=== PATIENT | female | born 1935 | race Caucasian/White ===

== ENCOUNTER → 2018-06-21 08:25 | Outpatient (CLI) | payer MEDICARE, OTHER, SELFPAY ==
[2018-06-21 09:17] LABS: Add Manual Diff / Slide Review NO; Basophils Percent Auto 0.7 % (0-2); Eosinophils Percent Auto 2.4 % (2-4); Hematocrit 45.5 % (36-46); Hemoglobin 15.1 g/dL (12.0-16.0); Lymphocytes Percent Auto 32.8 % (25-40); Mean Corpuscular HGB Conc 33.2 % (30-36); Mean Corpuscular Hemoglobin 30.5 PG (26-34); Monocytes Percent Auto 8.8 % (3-14); Neutrophils Absolute Auto 3300 /uL (3000-5900); Neutrophils Percent Auto 55.3 % (50-75); Platelet Count 244 X10^3/uL (150-400); Red Blood Cell Count 4.94 X10^6/uL (4.0-5.2)
[2018-06-21 09:50] LABS: Alanine Aminotransferase 28 IU/L (9-52); Albumin 4.3 g/dL (3.5-5.0); Albumin Globulin Ratio 1.6 (1.0-2.8); Alkaline Phosphatase 102 U/L (38-126); Aspartate Aminotransferase 22 IU/L (14-36); BUN Creatinine Ratio 9.3 (6-22); Bilirubin Total 0.4 mg/dL (0.2-1.3); Blood Urea Nitrogen 13 mg/dL (7-17); Calcium 9.9 mg/dL (8.4-10.2); Carbon Dioxide 21 mmol/L (22-32); Chloride 107 mmol/L (98-107); Estimated Glomerular Filt Rate 35.9 mL/min (>60); Globulin 2.7 g/dL (1.7-4.1); Glucose 118 mg/dL (80-110); HEMOLYSIS < 15 (0-50); Potassium 4.8 mmol/L (3.4-5.1); Sodium 144 mmol/L (137-145)
== END ==
PROVIDERS: PCP Internal Medicine; Visit Provider Internal Medicine
DX: N18.9 Chronic kidney disease, unspecified (principal); I10 Essential (primary) hypertension; K58.0 Irritable bowel syndrome with diarrhea
CPT/HCPCS: 36415; 80053; 85025

== ENCOUNTER → 2018-07-04 10:05 | Outpatient (CLI) | payer MEDICARE, OTHER, SELFPAY | PROVIDERS: PCP Internal Medicine; Visit Provider Internal Medicine | DX: M81.0 Age-related osteoporosis without current pathological fracture (principal); Z78.0 Asymptomatic menopausal state; E03.9 Hypothyroidism, unspecified; Z82.62 Family history of osteoporosis; Z87.891 Personal history of nicotine dependence | CPT/HCPCS: 77080 ==

== ENCOUNTER 2020-03-08 11:55 | Emergency (ER) | payer MEDICARE, OTHER, SELFPAY ==
[2020-03-08] VITALS (8 sets, daily range): BP systolic 185–232; BP diastolic 84–109; PULSE 48–65; RESP 17–22; TEMP 36.5; O2SAT 96–97; BMI 24.4
--- NOTE | 2020-03-08 12:28 | DI.RAD.S_ITS ---
PROCEDURE: XR CHEST 1V INDICATIONS: chest pain TECHNIQUE: One view of the chest was acquired. COMPARISON: [facility], , XR CXR 2 VIEW, 10/15/2000, 14:38. CT of the chest dated 07/09/10. FINDINGS: Surgical changes and devices: None. Lungs and pleura: Areas of consolidation versus increased density are evident within the bilateral medial infrahilar regions. No large effusion or definite pneumothorax is appreciated. Mediastinum: Mediastinal contours appear normal. Heart size is normal. Bones and chest wall: No suspicious bony lesions. Overlying soft tissues appear unremarkable. IMPRESSION: 1. No definite acute cardiopulmonary process is evident. 2. Areas of increased density within the infrahilar regions likely is related to the patient's known large hiatal hernia. Dictated by: Daniel Berrios M.D. on 03/08/2020 at 11:47 Approved by: Daniel Berrios M.D. on 03/08/2020 at 12:01
[2020-03-08 12:34] LABS: Add Manual Diff / Slide Review NO; Basophils Absolute Auto 100 /uL (0-100); Basophils Percent Auto 0.9 % (0-2); Eosinophils Absolute Auto 100 /uL (0-450); Eosinophils Percent Auto 2.3 % (2-4); Hematocrit 43.4 % (36-46); Hemoglobin 14.5 g/dL (12.0-16.0); Lymphocytes Absolute Auto 1800 /uL (1100-4500); Lymphocytes Percent Auto 27.9 % (25-40); Mean Corpuscular HGB Conc 33.4 % (30-36); Mean Corpuscular Hemoglobin 30.7 PG (26-34); Mean Corpuscular Volume 92.2 fL (80-100); Monocytes Absolute Auto 500 /uL (0-900); Monocytes Percent Auto 8.5 % (3-14); Neutrophils Absolute Auto 3900 /uL (1500-7000); Neutrophils Percent Auto 60.4 % (50-75); Platelet Count 189 X10^3/uL (150-400); Red Blood Cell Count 4.71 X10^6/uL (4.0-5.2); White Blood Cell Count 6.4 X10^3/uL (4.5-11.0)
[2020-03-08 12:40] LABS: Prothrombin Time 10.9 SECONDS (10.1-12.7)
[2020-03-08 12:42] LABS: PTT Partial Thromboplastin Tim 32 SECONDS (26.4-36.2)
[2020-03-08 12:44] LABS: Alanine Aminotransferase 15 IU/L (<35); Albumin Globulin Ratio 1.3 (1.0-2.8); Alkaline Phosphatase 98 U/L (38-126); Aspartate Aminotransferase 27 IU/L (14-36); BUN Creatinine Ratio 12.6 (6-22); Bilirubin Total 0.6 mg/dL (0.2-1.3); Blood Urea Nitrogen 16 mg/dL (7-17); Calcium 9.7 mg/dL (8.4-10.2); Carbon Dioxide 21 mmol/L (22-32); Chloride 110 mmol/L (98-107); Creatine Kinase 76 U/L (30-135); Estimated Glomerular Filt Rate 40.1 mL/min (>60); Glucose 99 mg/dL (80-110); HEMOLYSIS 44 (0-50); Lipase 182 U/L (23-300); Potassium 4.3 mmol/L (3.4-5.1); Sodium 138 mmol/L (137-145)
[2020-03-08 12:55] LABS: Troponin I < 0.012 ng/mL (0.01-0.034)
--- NOTE | 2020-03-08 13:04 | ED.ARRPALP ---
HPI - Arrhythmia/Palpitations General Chief Complaint: Arrhythmia/Palpitations Stated Complaint: Irregular Heart Beat Time Seen by Provider: 03/08/20 12:49 Source: patient Mode of arrival: Wheelchair Limitations: no limitations History of Present Illness HPI narrative: CC; Palpitations HPI: The patient is an 84-year-old female with a history of paroxysmal atrial fibrillation. The patient is on flecainide and no beta-kanika or calcium channel agent. The patient had transient dizziness associated with a low heart rate with her heart rate dropping to the mid 40s according to her . Her is a retired physician. The patient describes her dizziness as a spinning vertiginous sensation. She denied being faint or lightheaded. She denied any chest pain shortness of breath. She took 2 buffered aspirins prior to coming into the emergency department. She admits to history of hypertension denies a previous history of stroke myocardial infarction or asthma. The patient denies any fever chills or sweats chest pain shortness of breath or cough. She has had no nausea but she has had intermittent diarrhea without melena or hematochezia. She has had some mild urinary frequency but no dysuria. Related Data Home Medications Medication Instructions Recorded Confirmed FLECAINIDE ACETATE (Tambocor) 50 mg PO BID #0 08/26/10 LEVOTHYROXINE SODIUM (Synthroid) 75 mcg PO QDAY #0 08/26/10 OMEPRAZOLE 40 mg PO Q DAY #0 08/26/10 Tolterodine Tartrate (Detrol) 4 mg Q DAY #0 08/26/10 [STOOL SOFTENER] 1 PO QDAY #0 08/26/10 [TRAVATAN] 0.004 % INOC QDAY #0 08/26/10 [PROSED] PRN #0 12/02/12 fexofenadine 60 mg PO #0 12/02/12 DILTIAZEM HCL (DILT-CD) 180 mg PO QDAY #0 01/14/13 Previous Rx's Medication Instructions Recorded naproxen [Naprosyn] 500 mg PO BIDCC #30 01/14/13 hydrochlorothiazide 25 mg PO DAILY #20 tab 03/08/20 meclizine 12.5 mg PO TID PRN #15 tab 03/08/20 Allergies Allergy/AdvReac Type Severity Reaction Status Date / Time codeine [CODEINE] Allergy Unknown Verified 03/08/20 12:06 Review of Systems Review of Systems Narrative: Her review of systems were all negative except for those mentioned in the history of present illness Patient History Social History Smoking Status: Unknown if ever smoked Smoking Status: Unknown if ever smoked alcohol intake frequency: 0-2 drinks per day Substance Use Type: does not use Exam Narrative Exam Narrative: PHYSICAL EXAM: CONSTITUTIONAL: Awake, Alert, Oriented, Coherent, Cooperative in NAD. Does not appear toxic or ill. HEAD: AT/NC EENT: PERRL, FROM of eyes, no discharge, no nystagmus NOSE:No epistaxis or nasal drainage MOUTH:Oral mucosa is moist and pink, posterior pharynx is without erythema or exudate. NECK: Supple, no obvious JVD, Trachea is midline without stridor, no palpable LN. SPINE: Palpationof the cervical, Thoracic, Lumbar or Sacral spine reveals no gross deformity or tenderness. No CVA tenderness. THORAX: No deformity, retractions, chest wall tenderness. LUNGS: Clear, symmetrical breath sounds without respiratory distress. HEART: Normal heart tones, regular rhythm and rate without murmur. ABDOMEN: Soft, non-tender, no guarding, rebound, rigidity or palpable mass. EXTREMITIES: No edema, deformity, tenderness or cyanosis. SKIN: No rash, bruising, petechiae or purpura. NEURO: Awake, alert, oriented, conversive, cranial nerves II-XII are symmetrical , moves all 4 extremities and is ambulatory. MENTAL HEALTH: Does not appear anxious or depressed. Initial Vital Signs Initial Vital Signs: Vital Signs Temperature 97.7 F 03/08/20 12:01 Pulse Rate 64 03/08/20 12:01 Respiratory Rate 17 03/08/20 12:01 Blood Pressure 232/109 H 03/08/20 12:01 Pulse Oximetry 97 03/08/20 12:01 Course Course Course Narrative: 1342: In the supine position the patient's heart rate was 53 blood pressure was 101/91 In the standing position heart rate was 63 and blood pressure 206/88. The patient has a history of paroxysmal atrial fibrillation is not on any anticoagulation and is on flecainide. 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 The patient is not on a beta-kanika or anticoagulant. The patient is just on flecainide.[address] Long. The patient's is a retired physician is concerned that her heart rate drops down into the high 40s. 1353: Discussed with Dr. Long, control the blood pressure. It is normal for the heart rate to be 45, 50 or 60 on the flecainide as long as the blood pressure is normal. If the blood pressure is high that needs to be lowered. They can call the office and make an appointment for a Holter monitor and further evaluation. Dr. Shukla states that he has not seen the patient since 2015. Orders Ordered: ED Orders 03/08/20 12:28 XR chest 1V Stat Discontinued Medications Hydralazine HCl (Apresoline) 5 mg IV NOW ONE Stop: 03/08/20 13:54 Last Admin: 03/08/20 14:06 Dose: 5 mg Documented by: MACI Vital Signs Vital signs: Vital Signs - 8 hr 03/08/20 13:23 03/08/20 13:32 03/08/20 13:34 Pulse Rate 48 L 57 L 65 Pulse Rate [Orthostatic Lying] Pulse Rate [Orthostatic Standing] Respiratory Rate 22 19 22 Blood Pressure 201/91 H 206/88 H Blood Pressure [Orthostatic Lying] Blood Pressure [Orthostatic Standing] Pulse Oximetry 96 96 97 03/08/20 13:40 03/08/20 14:00 03/08/20 14:06 Pulse Rate 53 L 63 Pulse Rate [Orthostatic Lying] 53 L Pulse Rate [Orthostatic Standing] 63 Respiratory Rate 22 Blood Pressure 209/88 H Blood Pressure [Orthostatic Lying] 201/91 H Blood Pressure [Orthostatic Standing] 206/88 H Pulse Oximetry 97 03/08/20 14:31 Pulse Rate 61 Pulse Rate [Orthostatic Lying] Pulse Rate [Orthostatic Standing] Respiratory Rate 22 Blood Pressure 185/84 H Blood Pressure [Orthostatic Lying] Blood Pressure [Orthostatic Standing] Pulse Oximetry 96 MDM - Arrhythmia/Palpitations Medical Records Attestation: I reviewed the patient's medical records. Lab Data Attestation: I reviewed the patient's lab results. Result diagrams: 03/08/20 12:05 03/08/20 12:05 Labs: Lab Results 03/08/20 03/08/20 03/08/20 Range/Units 12:05 12:05 12:05 WBC 6.4 (4.5-11.0) X10^3/uL RBC 4.71 (4.0-5.2) X10^6/uL Hgb 14.5 (12.0-16.0) g/dL Hct 43.4 (36-46) % MCV 92.2 (80-100) fL MCH 30.7 (26-34) PG MCHC 33.4 (30-36) % RDW 15.0 H (11.6-14.8) % Plt Count 189 (150-400) X10^3/uL Neut % (Auto) 60.4 (50-75) % Lymph % (Auto) 27.9 (25-40) % [place] % (Auto) 8.5 (3-14) % Eos % (Auto) 2.3 (2-4) % Baso % (Auto) 0.9 (0-2) % Neut # (Auto) 3900 (4878-1672) /uL Lymph # (Auto) 1800 (0936-2835) /uL [place] # (Auto) 500 (0-900) /uL Eos # (Auto) 100 (0-450) /uL Baso # (Auto) 100 (0-100) /uL PT 10.9 (10.1-12.7) SECONDS INR 1.0 (0.9-1.3) APTT 32 (26.4-36.2) SECONDS Sodium 138 (137-145) mmol/L Potassium 4.3 (3.4-5.1) mmol/L Chloride 110 H (98-107) mmol/L Carbon Dioxide 21 L (22-32) mmol/L BUN 16 (7-17) mg/dL Creatinine 1.27 H (0.52-1.04) mg/dL Estimated GFR 40.1 L (>60) mL/min BUN/Creatinine Ratio 12.6 (6-22) Glucose 99 (80-110) mg/dL Calcium 9.7 (8.4-10.2) mg/dL Total Bilirubin 0.6 (0.2-1.3) mg/dL AST 27 (14-36) IU/L ALT 15 (<35) IU/L Alkaline Phosphatase 98 (38-126) U/L Total Creatine Kinase 76 (30-135) U/L CK-MB (CK-2) TNP CK-MB (CK-2) Rel Index TNP Troponin I < 0.012 (0.01-0.034) ng/mL Total Protein 7.0 (6.3-8.2) g/dL Albumin 4.0 (3.5-5.0) g/dL Globulin 3.0 (1.7-4.1) g/dL Albumin/Globulin Ratio 1.3 (1.0-2.8) Lipase 182 (23-300) U/L ECG Data Attestation: I personally reviewed and interpreted this ECG as follows: Interpretation: Patient's EKG obtained at 12:14 p.m. reveals a sinus bradycardia with a ventricular rate of 50. MS interval is 160 milliseconds QRS duration is 90 milliseconds QTC is 404 milliseconds with left axis deviation. The patient has flat biphasic T-waves in leads III and AVF with an inverted T-wave in V1. There are no other acute diagnostic ST segment changes appreciated. The patient has nonspecific ST segment changes. Discharge Plan Departure Patient Disposition: Home Clinical Impression: Palpitations, Paroxysmal A-fib Hypertension Qualifiers: Hypertension type: essential hypertension Qualified Code(s): I10 - Essential (primary) hypertension Discharge Date/Time: 03/08/20 14:56 Instructions: Essential Hypertension, DI for Atrial Fibrillation, DI for Palpitations Activity Restrictions/Additional Instructions: 1. Call Dr. Long's office to make an appointment and schedule a Holter monitor. 2. Your heart rate may dropped to the mid 40s, 50s and 60s while on the flecainide. It is important that her blood pressure remains greater than 120 during this time. 3. Continue your losartan as prescribed and recomended that we start hydrochlorothyazide, 25 mg per day. 4. Continue the rest of your medications. 5. For spinning dizziness or disequilibrium take meclizine 12.5 mg 3 times a day as needed. Prescriptions: New meclizine 12.5 mg tablet 12.5 mg PO TID PRN (Reason: dizziness) Qty: 15 RF: 0 hydrochlorothiazide 25 mg tablet 25 mg PO DAILY Qty: 20 RF: 1 No Action OMEPRAZOLE 40 mg PO Q DAY Qty: 0 RF: 0 Tolterodine Tartrate (Detrol) 4 mg Q DAY Qty: 0 RF: 0 LEVOTHYROXINE SODIUM (Synthroid) 75 mcg PO QDAY Qty: 0 RF: 0 FLECAINIDE ACETATE (Tambocor) 50 mg PO BID Qty: 0 RF: 0 [STOOL SOFTENER] 1 PO QDAY Qty: 0 RF: 0 [TRAVATAN] 0.004 % INOC QDAY Qty: 0 RF: 0 fexofenadine 60 MG tablet 60 mg PO Qty: 0 RF: 0 [PROSED] PRN Qty: 0 RF: 0 DILTIAZEM HCL (DILT-CD) 180 mg PO QDAY Qty: 0 RF: 0 naproxen [Naprosyn] 500 MG tablet 500 mg PO BIDCC Qty: 30 RF: 0 Referrals: Wilber León MD [Primary Care Provider] -
[2020-03-08] MEDS: HYDRALAZINE 20 MG/ML VIAL 5 MG IV (14:06)
== END 2020-03-08 14:56 | disposition home or self-care (01) ==
PROVIDERS: Emergency Provider Emergency Medicine; PCP Internal Medicine
DX: I48.0 Paroxysmal atrial fibrillation (principal); R00.2 Palpitations; I10 Essential (primary) hypertension; R19.7 Diarrhea, unspecified; R35.0 Frequency of micturition
CPT/HCPCS: 36415; 71045; 80053; 82550; 83690; 84484; 85025; 85610; 85730; 93005; 96374; 99284; J0360

== ENCOUNTER → 2020-03-26 10:32 | Outpatient (CLI) | payer MEDICARE, OTHER, SELFPAY ==
[2020-03-26 13:06] LABS: TSH w/ Reflex to FT4 1.07 uIU/mL (0.47-4.68)
== END ==
PROVIDERS: PCP Internal Medicine; Referring Provider Internal Medicine; Visit Provider Internal Medicine
DX: E03.9 Hypothyroidism, unspecified (principal)
CPT/HCPCS: 36415; 84443

== ENCOUNTER → 2020-11-07 14:50 | Outpatient (ROUT) | payer MEDICARE, OTHER, SELFPAY ==
[2020-11-07 16:05] LABS: Add Manual Diff / Slide Review NO; Basophils Absolute Auto 0 /uL (0-100); Basophils Percent Auto 0.5 % (0-2); Eosinophils Absolute Auto 100 /uL (0-450); Hematocrit 41.7 % (36-46); Hemoglobin 13.8 g/dL (12.0-16.0); Lymphocytes Absolute Auto 1500 /uL (1100-4500); Lymphocytes Percent Auto 21.7 % (25-40); Mean Corpuscular HGB Conc 33.1 % (30-36); Mean Corpuscular Hemoglobin 31.6 PG (26-34); Mean Corpuscular Volume 95.2 fL (80-100); Monocytes Absolute Auto 500 /uL (0-900); Monocytes Percent Auto 7.6 % (3-14); Neutrophils Absolute Auto 4600 /uL (1500-7000); Neutrophils Percent Auto 68.2 % (50-75); Platelet Count 187 X10^3/uL (150-400); Red Blood Cell Count 4.37 X10^6/uL (4.0-5.2); Red Cell Distribution Width 14.7 % (11.6-14.8); White Blood Cell Count 6.8 X10^3/uL (4.5-11.0)
[2020-11-07 16:18] LABS: Alanine Aminotransferase 18 IU/L (<35); Albumin 4.1 g/dL (3.5-5.0); Albumin Globulin Ratio 1.4 (1.0-2.8); Alkaline Phosphatase 116 U/L (38-126); Aspartate Aminotransferase 22 IU/L (14-36); BUN Creatinine Ratio 15.1 (6-22); Bilirubin Total 0.3 mg/dL (0.2-1.3); Blood Urea Nitrogen 21 mg/dL (7-17); Calcium 9.6 mg/dL (8.4-10.2); Carbon Dioxide 20 mmol/L (22-32); Chloride 110 mmol/L (98-107); Globulin 2.9 g/dL (1.7-4.1); Glucose 114 mg/dL (80-110); HEMOLYSIS < 15 (0-50); Potassium 4.4 mmol/L (3.4-5.1); Sodium 142 mmol/L (137-145)
[2020-11-07 16:33] LABS: Hemoglobin A1C% w Est Avg Glu 5.6 % (4.0-6.0)
[2020-11-07 16:41] LABS: TSH w/ Reflex to FT4 1.41 uIU/mL (0.47-4.68)
== END ==
PROVIDERS: PCP Internal Medicine; Visit Provider Internal Medicine
DX: I48.20 Chronic atrial fibrillation, unspecified (principal); N18.9 Chronic kidney disease, unspecified; I10 Essential (primary) hypertension; E11.9 Type 2 diabetes mellitus without complications
CPT/HCPCS: 80053; 83036; 84443; 85025

== ENCOUNTER 2023-04-14 09:30 | Emergency (ER) | payer MEDICARE, OTHER, SELFPAY ==
--- NOTE | 2023-04-14 09:37 | DI.RAD.S_ITS ---
PROCEDURE: XR RIBS LT MIN 3V W CXR1V INDICATIONS: L lower rib pain after injury TECHNIQUE: 2 views of the left ribs were acquired, along with a single view chest. COMPARISON: None. FINDINGS: Surgical changes and devices: None. Bones and chest wall: Nondisplaced posterior left 11th rib fracture. No suspicious bony lesions. Overlying soft tissues appear unremarkable. Lungs and pleura: No pleural effusions or pneumothorax. Lungs appear clear. Mediastinum: Mediastinal contours appear normal. Heart size is normal. Large hiatal hernia. IMPRESSION: 1. Left 11th rib fracture. 2. No pneumothorax. 3. Large hiatal hernia. Dictated by: Cali Cisneros M.D. on 04/14/2023 at 10:19 Approved by: Cali Cisneros M.D. on 04/14/2023 at 10:21
[2023-04-14 09:40] VITALS: BP 198/98; PULSE 100; RESP 18; TEMP 36.2; O2SAT 99; BMI 23.8
--- NOTE | 2023-04-14 09:44 | ED_ITS ---
HPI - General Adult General Chief complaint: Back Pain/Injury Stated complaint: back pain caught while he was falling Time Seen by Provider: 04/14/23 09:31 Source: patient Mode of arrival: Wheelchair Limitations: no limitations History of Present Illness HPI narrative: Patient is an 87-year-old female she is here for evaluation of thoracic/lower back discomfort that is both sides with left being worse than right. On Wednesday she stated that she tried to catch her from falling and that is when she hurt her back. She did not fall herself. She has been putting a heating pad over the area with only minimal relief. She has had symptoms like this in the past. She thinks that muscle relaxers has helped. Related Data Home Medications Medication Instructions Recorded Confirmed LEVOTHYROXINE SODIUM (Synthroid) 75 mcg PO QDAY ##0 08/26/10 10/07/22 acetaminophen 325 mg capsule 325 mg PO ONCE PRN 09/07/22 10/07/22 (Tylenol) brinzolamide 1 % eye drp EYE-BOTH BID 09/07/22 10/07/22 drops,suspension flecainide 50 mg tablet 50 mg PO BID 09/07/22 10/07/22 travoprost 0.004 % eye drops drp EYE-BOTH ONCE 09/07/22 10/07/22 vit cap PO .qd 09/07/22 10/07/22 C,E,zinc,Hp-kieih-8-lutein-zeaxanthin 250 mg-2.5 mg-0.5 mg capsule Previous Rx's Medication Instructions Recorded allopurinol 100 mg tablet 100 mg PO DAILY #90 tabs 09/07/22 losartan 50 mg tablet 50 mg PO DAILY blood pressure #90 10/27/22 tabs OMEPRAZOLE 40 mg PO Q DAY #90 tabs 03/02/23 cyclobenzaprine 10 mg tablet 10 mg PO TID PRN muscle spasm #10 04/14/23 tabs tramadol 50 mg tablet 50 mg PO TID PRN pain #10 tabs 04/14/23 Allergies Allergy/AdvReac Type Severity Reaction Status Date / Time codeine [CODEINE] Allergy Unknown Verified 10/07/22 08:16 Review of Systems Constitutional Constitutional: Reports system reviewed and no additional complaints, except as documented Musculoskeletal Musculoskeletal: Reports system reviewed and no additional complaints, except as documented Integumentary/Breasts Skin/Breast: Reports system reviewed and no additional complaints, except as d ocumented Neurologic Neurologic: Reports system reviewed and no additional complaints, except as documented Patient History Medical History Atrial fibrillation Benign essential HTN Carpal tunnel syndrome CKD (chronic kidney disease) stage 3, GFR 30-59 ml/min Glaucoma Gout Gout Measles Mumps Surgical History (Updated 09/06/22 @ 19:53 by Radha Maria) Anesthesia History of cholecystectomy (~1965) Social History Smoking Status: Former smoker Smoking Status: Former smoker alcohol intake frequency: 0-2 drinks per day Substance Use Type: does not use Exam Initial Vital Signs Initial Vital Signs: Vital Signs Temperature 97.2 F L 04/14/23 09:40 Pulse Rate 100 H 04/14/23 09:40 Respiratory Rate 18 04/14/23 09:40 Blood Pressure 198/98 H 04/14/23 09:40 Pulse Oximetry 99 04/14/23 09:40 Oxygen Delivery Method Room Air 04/14/23 09:40 Const General: cooperative and comfortable Back/Spine/Pelvis Other: Some discomfort to palpation at the thoracolumbar paraspinal region of her back left pain worse than right and some left-sided rib pain Extrem Other: No extremity changes Course Orders Ordered: ED Orders 04/14/23 09:37 XR ribs LT min 3V w CXR1V Stat Discontinued Medications Acetaminophen (Acetaminophen 325 Mg Tablet) 650 mg PO NOW ONE Stop: 04/14/23 09:47 Last Admin: 04/14/23 09:50 Dose: 650 mg Documented By: ADELE Vital Signs Vital signs: Vital Signs - 8 hr 04/14/23 09:40 Temperature 97.2 F L Pulse Rate 100 H Respiratory Rate 18 Blood Pressure 198/98 H Pulse Oximetry 99 Oxygen Delivery Method Room Air Medical Decision Making Imaging Data Rib x-rays: Radiologist's Impression: Left 11th rib fracture No pneumothorax Large hiatal hernia MDM Narrative Medical decision making narrative: Patient's physical exam and her x-ray are consistent with a left 11th rib fracture which I suspect is new. There is no signs of pneumonia. No respiratory distress. I did discuss this with her. Will discharge home with pain medication and muscle relaxers and she knows that she needs to be careful with these medications. She was given return precautions. She expressed understanding and agreement. Discharge Plan Departure Patient Disposition: Home Clinical Impression: Fracture of rib Instructions: DI for Rib Fracture Activity Restrictions/Additional Instructions: A prescription for pain medication and muscle relaxers was sent to daily. Like we discussed both of these medications can make you drowsy so you need to only take 1 of them at a time. Contact your primary doctor for follow-up. Return to the emergency department for new or worsening symptoms. Prescriptions: New cyclobenzaprine 10 mg tablet 10 mg PO TID PRN (Reason: muscle spasm) Qty: 10 0RF tramadol 50 mg tablet 50 mg PO TID PRN (Reason: pain) Qty: 10 0RF No Action LEVOTHYROXINE SODIUM (Synthroid) 75 mcg PO QDAY Qty: 0 losartan 50 mg tablet 50 mg PO DAILY Qty: 90 3RF OMEPRAZOLE 40 mg PO Q DAY Qty: 90 0RF flecainide 50 mg tablet 50 mg PO BID travoprost 0.004 % drops EYE-BOTH ONCE brinzolamide 1 % drops,suspension EYE-BOTH BID vit C,E,Zn,Ml--pyv-zeax 250-2.5-0.5 mg capsule PO .qd acetaminophen [Tylenol] 325 mg capsule 325 mg PO ONCE PRN allopurinol 100 mg tablet 100 mg PO DAILY Qty: 90 3RF Referrals: Stu Worrell DO [Primary Care Provider] - Stand Alone Forms: Patient Portal/API
[2023-04-14] MEDS: ACETAMINOPHEN 325 MG TABLET 650 MG PO (09:50)
[2023-04-14 11:59] VITALS: BP 220/102; PULSE 84; O2SAT 95
== END 2023-04-14 12:04 | disposition home or self-care (01) ==
PROVIDERS: Emergency Provider Emergency Medicine; PCP Family Medicine
DX: S22.32XA Fracture of one rib, left side, initial encounter for closed fracture (principal); X50.0XXA Overexertion from strenuous movement or load, initial encounter; Y93.9 Activity, unspecified
CPT/HCPCS: 71101; 99283

== ENCOUNTER → 2023-05-05 07:21 | Outpatient (CLI) | payer MEDICARE, OTHER, SELFPAY ==
[2023-05-05 09:21] LABS: Alanine Aminotransferase 25 IU/L (<35); Albumin Globulin Ratio 1.2 (1.0-2.8); Alkaline Phosphatase 173 U/L (38-126); Aspartate Aminotransferase 27 IU/L (14-36); BUN Creatinine Ratio 15.3 (6-22); Bilirubin Total 0.3 mg/dL (0.2-1.3); Blood Urea Nitrogen 29 mg/dL (7-17); Calcium 10.3 mg/dL (8.4-10.2); Carbon Dioxide 16 mmol/L (22-32); Chloride 111 mmol/L (98-107); Cholesterol 202 mg/dL (140-199); Estimated Glomerular Filt Rate 25 mL/min (>60); Globulin 3.4 g/dL (1.7-4.1); Glucose 103 mg/dL (80-110); HDL Cholesterol 61 mg/dL (40-60); HEMOLYSIS < 15 (0-50); LDL Cholesterol Calculated 89 mg/dL (<100); Potassium 4.6 mmol/L (3.4-5.1); Sodium 142 mmol/L (137-145); Total Protein 7.4 g/dL (6.3-8.2); Triglycerides 261 mg/dL (35-150); Uric Acid 4.8 mg/dL (2.5-6.2)
[2023-05-05 09:51] LABS: TSH w/ Reflex to FT4 0.69 uIU/mL (0.47-4.68)
[2023-05-05 10:02] LABS: Hemoglobin A1C% w Est Avg Glu 5.1 % (4.0-6.0)
== END ==
PROVIDERS: PCP Family Medicine; Referring Provider Family Medicine; Visit Provider Family Medicine
DX: Z13.1 Encounter for screening for diabetes mellitus (principal); I10 Essential (primary) hypertension; M10.9 Gout, unspecified; I48.91 Unspecified atrial fibrillation
CPT/HCPCS: 36415; 80053; 80061; 83036; 84443; 84550

== ENCOUNTER → 2023-05-06 10:20 | Outpatient (CLI) | payer MEDICARE, OTHER, SELFPAY ==
--- NOTE | 2023-05-06 10:22 | DI.RAD.S_ITS ---
PROCEDURE: XR THORACIC SPINE 3V INDICATIONS: pain over mid T-spine. trauma 04/10 with rib injury TECHNIQUE: 3 views of the thoracic spine were acquired. COMPARISON: [facility], XR LUMBAR SPINE WITH OLBIQUES PLUS FLEXION EXTENSION, 06/06/2018, 9:19. [facility], CT, CHEST ABDOMEN PELVIS WITH CONTRAST, 07/09/2010, 8:39. FINDINGS: Bones: Severe compression fracture of T8. There is osteopenia. Moderate degenerative disc disease in lumbar spine. Mild dextroscoliosis with the apex at T5. Trace retrolisthesis of L1 on L2. 12 pairs of ribs are noted, and appear intact where visualized. Soft tissues: No paravertebral stripe thickening. There is a large hiatal hernia. IMPRESSION: 1. Severe compression fracture of T8, uncertain chronicity. Consider MRI for further evaluation if clinically indicated. 2. Moderate degenerative disc disease. 3. Mild dextroscoliosis with the apex at T5. 4. Large hiatal hernia. Dictated by: Eli Morton M.D. on 05/06/2023 at 16:50 Approved by: Eli Morton M.D. on 05/07/2023 at 11:14
== END ==
PROVIDERS: PCP Family Medicine; Referring Provider Family Medicine; Visit Provider Family Medicine
DX: S22.068A Other fracture of T7-T8 thoracic vertebra, initial encounter for closed fracture (principal); S22.39XA Fracture of one rib, unspecified side, initial encounter for closed fracture; M51.34 Other intervertebral disc degeneration, thoracic region; M41.9 Scoliosis, unspecified; K44.9 Diaphragmatic hernia without obstruction or gangrene; X58.XXXA Exposure to other specified factors, initial encounter
CPT/HCPCS: 72072

== ENCOUNTER → 2023-06-11 09:37 | Outpatient (CLI) | payer MEDICARE, OTHER, SELFPAY ==
[2023-06-11 11:18] LABS: BUN Creatinine Ratio 12.7 (6-22); Blood Urea Nitrogen 15 mg/dL (7-17); Calcium 9.8 mg/dL (8.4-10.2); Carbon Dioxide 18 mmol/L (22-32); Chloride 112 mmol/L (98-107); Estimated Glomerular Filt Rate 44 mL/min (>60); Glucose 127 mg/dL (80-110); HEMOLYSIS 17 (0-50); Potassium 3.9 mmol/L (3.4-5.1); Sodium 142 mmol/L (137-145)
== END ==
PROVIDERS: PCP Family Medicine; Referring Provider Family Medicine; Visit Provider Family Medicine
DX: N18.30 Chronic kidney disease, stage 3 unspecified (principal); I10 Essential (primary) hypertension; I48.91 Unspecified atrial fibrillation
CPT/HCPCS: 36415; 80048

== ENCOUNTER 2023-07-01 09:28 | Emergency (ER) | payer MEDICARE, OTHER, SELFPAY ==
[2023-07-01 09:39] VITALS: BP 182/79; PULSE 94; RESP 18; TEMP 36.8; O2SAT 98; BMI 22.4
--- NOTE | 2023-07-01 09:50 | ED_ITS ---
HPI - Extremity Injury (Lower) General Chief Complaint: Extremity Injury, Lower Stated Complaint: fell T-1 in pain Time Seen by Provider: 07/01/23 09:46 Source: patient Mode of arrival: Wheelchair History of Present Illness HPI Narrative: Patient is an 88-year-old female who is here for evaluation of left hip pain. States last evening she tripped over the cord to an electric blanket. She stated that she did not hit her head. Not on anticoagulation. No loss of consciousness. No neck pain. No upper extremity tenderness. She is tenderness to her left hip/groin area. He has been ambulatory since the event. Has been using a walker. This morning her left hip pain is worse. No right leg pain. Her left knee and left ankle unremarkable. Related Data Home Medications Medication Instructions Recorded Confirmed acetaminophen 325 mg capsule 325 mg PO ONCE PRN 09/07/22 06/11/23 (Tylenol) brinzolamide 1 % eye drp EYE-BOTH BID 09/07/22 06/11/23 drops,suspension travoprost 0.004 % eye drops drp EYE-BOTH ONCE 09/07/22 06/11/23 vit cap PO .qd 09/07/22 06/11/23 C,E,zinc,Ia-dxdhn-2-lutein-zeaxanthin 250 mg-2.5 mg-0.5 mg capsule Previous Rx's Medication Instructions Recorded cyclobenzaprine 10 mg tablet 10 mg PO TID PRN muscle spasm #10 04/14/23 tabs tramadol 50 mg tablet 50 mg PO TID PRN pain #10 tabs 04/14/23 OMEPRAZOLE 40 mg PO Q DAY #90 tabs 05/21/23 flecainide 50 mg tablet 50 mg PO BID #180 tabs 05/24/23 allopurinol 100 mg tablet 100 mg PO DAILY #90 tabs 06/11/23 levothyroxine 75 mcg tablet 75 mcg PO DAILY #90 tabs 06/11/23 losartan 50 mg tablet 50 mg PO DAILY blood pressure #90 06/11/23 tabs omeprazole 40 mg capsule,delayed 40 mg PO DAILY #90 caps 06/11/23 release Allergies Allergy/AdvReac Type Severity Reaction Status Date / Time codeine [CODEINE] Allergy Unknown Verified 06/11/23 09:00 Review of Systems Constitutional Constitutional: Reports system reviewed and no additional complaints, except as documented Musculoskeletal Musculoskeletal: Reports system reviewed and no additional complaints, except as documented Integumentary/Breasts Skin/Breast: Reports system reviewed and no additional complaints, except as documented Hematologic/Lymphatic On Anticoagulants: No Patient History Medical History Encounter for subsequent annual wellness visit (AWV) in [employer] patient T8 vertebral fracture CKD (chronic kidney disease) stage 3, GFR 30-59 ml/min Glaucoma Gout Benign essential HTN Atrial fibrillation Gout Carpal tunnel syndrome Mumps Measles Surgical History (Updated 09/06/22 @ 19:53 by Radha Maria) Anesthesia History of cholecystectomy (~1965) Social History Smoking Status: Former smoker Smoking Status: Former smoker alcohol intake frequency: 0-2 drinks per day Substance Use Type: does not use Exam Initial Vital Signs Initial Vital Signs: Vital Signs Temperature 98.3 F 07/01/23 09:39 Pulse Rate 94 H 07/01/23 09:39 Respiratory Rate 18 07/01/23 09:39 Blood Pressure 182/79 H 07/01/23 09:39 Pulse Oximetry 98 07/01/23 09:39 Oxygen Delivery Method Room Air 07/01/23 09:39 Const General: cooperative, comfortable and No ill appearing HENKS Head: normal to inspection and normocephalic Resp Effort & Inspection: normal respiratory effort Skin General: no rashes or lesions noted Extrem Other: Bilateral upper extremities unremarkable. Patient has groin discomfort and discomfort over the greater trochanter with palpation of the left hip. Can internally and externally rotate with minimal discomfort. Course Orders Ordered: ED Orders 07/01/23 09:49 XR hip w pel if done LT 2V Stat Vital Signs Vital signs: Vital Signs - 8 hr 07/01/23 09:39 Temperature 98.3 F Pulse Rate 94 H Respiratory Rate 18 Blood Pressure 182/79 H Pulse Oximetry 98 Oxygen Delivery Method Room Air MDM - Extremity Injury (Lower) Imaging Data Extremity x-ray #1: Radiologist's Impression: PROCEDURE: XR HIP W PEL IF DONE LT 2V INDICATIONS: L hip pain after fall TECHNIQUE: AP pelvis with lateral view(s) of the left hip(s). COMPARISON: [facility], CT, CHEST ABDOMEN PELVIS WITH CONTRAST, 07/09/2010, 8:39. [facility], RG, XR PELVIS WITH LATERAL HIP, 07/28/2003, 14:34. FINDINGS: Bones: Diffuse osteopenia. Cortical irregularity involving the left superior and inferior pubic rami which are age-indeterminate but likely chronic as similar findings were seen on comparison CT dated July 09, 2010. No definite acute fractures or dislocations. Degenerative changes of the lower lumbar spine and bilateral hips. No suspicious bony lesions. Soft tissues: The visualized bowel gas pattern is normal. No suspicious soft tissue calcifications. IMPRESSION: 1. Diffuse osteopenia. 2. Age-indeterminate but suspected chronic fracture deformities of the left degroot perior and inferior pubic ramus. These appear relatively similar compared to prior CT dated 2009. 3. No definite hip fracture identified in the proximal left femur. If there is continued high clinical concern for occult fracture, further evaluation with CT or MRI can be considered. [facility] Narrative Medical decision making narrative: Patient is ambulatory with a walker with some discomfort but she is able to put pressure on her left hip. The x-ray does not show any acute fractures. It appears that she has an old fracture of the left superior and inferior pubic rami fracture no indication for CT scan. Patient can take Tylenol/ibuprofen for any discomfort. She was given return precautions. Discharge Plan Departure Patient Disposition: Home Clinical Impression: Hip pain Instructions: DI for Hip Pain Activity Restrictions/Additional Instructions: Your x-ray did not show any signs of new fractures. Recommend Tylenol or ibuprofen for any discomfort. Use the walker as needed. Contact your primary doctor for a follow-up. Return to the emergency department for new or worsening symptoms. Prescriptions: No Action OMEPRAZOLE 40 mg PO Q DAY Qty: 90 3RF Hold Instructions: Home Medication placed on hold at Doctor's office flecainide 50 mg tablet 50 mg PO BID Qty: 180 3RF travoprost 0.004 % drops EYE-BOTH ONCE brinzolamide 1 % drops,suspension EYE-BOTH BID vit C,E,Zn,Nb-swnye0-fvg-zeax 250-2.5-0.5 mg capsule PO .qd acetaminophen [Tylenol] 325 mg capsule 325 mg PO ONCE PRN allopurinol 100 mg tablet 100 mg PO DAILY Qty: 90 3RF levothyroxine 75 mcg tablet 75 mcg PO DAILY Qty: 90 3RF losartan 50 mg tablet 50 mg PO DAILY Qty: 90 3RF omeprazole 40 mg capsule,delayed release(DR/EC) 40 mg PO DAILY Qty: 90 3RF cyclobenzaprine 10 mg tablet 10 mg PO TID PRN (Reason: muscle spasm) Qty: 10 0RF tramadol 50 mg tablet 50 mg PO TID PRN (Reason: pain) Qty: 10 0RF Referrals: Stu Worrell DO [Primary Care Provider] - Stand Alone Forms: Patient Portal/API
[2023-07-01 10:58] VITALS: BP 167/72; PULSE 88; RESP 16; TEMP 36.8; O2SAT 97
== END 2023-07-01 11:00 | disposition home or self-care (01) ==
PROVIDERS: Emergency Provider Emergency Medicine; PCP Family Medicine
DX: M25.552 Pain in left hip (principal)
CPT/HCPCS: 73502; 99281; 99282

== ENCOUNTER → 2023-08-30 07:59 | Outpatient (CLI) | payer MEDICARE, OTHER, SELFPAY ==
--- NOTE | 2023-08-30 08:01 | DI.RAD.S_ITS ---
PROCEDURE: XR THORACIC SPINE 3V INDICATIONS: RIB PAIN TECHNIQUE: 3 views of the thoracic spine were acquired. COMPARISON: [facility], CR, XR THORACIC SPINE 3V, 05/06/2023, 10:34. FINDINGS: Bones: No no acute fractures or dislocations. Diffuse osteopenia. Stable appearance of severe anterior compression fracture of the T8 vertebral body. Redemonstration of multilevel thoracic spondylosis. No suspicious bony lesions. 12 pairs of ribs are noted, and appear intact where visualized. Soft tissues: No paravertebral stripe thickening. Moderate scattered atherosclerotic vascular calcifications. Hiatal hernia. IMPRESSION: Stable radiographic evaluation of the thoracic spine. Chronic appearing severe anterior compression fracture of T8, stable. No acute osseous abnormality seen. Multilevel thoracic spondylosis. Diffuse osteopenia. Dictated by: Dustin Sepulveda M.D. on 08/30/2023 at 9:08 Approved by: Dustin Sepulveda M.D. on 08/30/2023 at 9:11
== END ==
PROVIDERS: PCP Family Medicine; Referring Provider Physical Medicine & Rehabilitation; Visit Provider Physical Medicine & Rehabilitation
DX: M47.814 Spondylosis without myelopathy or radiculopathy, thoracic region (principal); M48.54XA Collapsed vertebra, not elsewhere classified, thoracic region, initial encounter for fracture; M85.88 Other specified disorders of bone density and structure, other site; R07.81 Pleurodynia
CPT/HCPCS: 72072

== ENCOUNTER → 2023-09-05 10:33 | Outpatient (CLI) | payer MEDICARE, OTHER, SELFPAY ==
--- NOTE | 2023-09-05 10:35 | DI.MRI.S_ITS ---
PROCEDURE: MR THORACIC SPINE WO CON INDICATIONS: T8 fx and left t11 fx TECHNIQUE: Noncontrast sagittal T1 spine echo and T2 fast spin echo, sagittal STIR, and T2 fast spin echo through the thoracic spine. COMPARISON: None. FINDINGS: Image quality: Excellent. Alignment and Curvature: There is normal bony alignment. Bone Marrow: Marrow is of normal overall signal. Greater than 85% compression deformity is present at T8. Linear areas of increased signal is present. There is a minimal appearance of retropulsion of the inferior endplate measuring approximately 2-3 mm. It is causing mild effacement of the anterior thecal sac. Spinal Cord: Visualized spinal cord is normal in size and signal. Paraspinous Soft Tissues: No paravertebral masses. Simple renal cysts are present. Miscellaneous: On axial images, foramina appear widely patent at all scanned levels. Multilevel degenerative disc desiccation is present. IMPRESSION: Subacute appearing compression deformity at T8 as above. Dictated by: Joanne Hernandez M.D. on 09/06/2023 at 13:31 Approved by: Joanne Hernandez M.D. on 09/06/2023 at 13:34
== END ==
LOC: MRI 10:34
PROVIDERS: PCP Family Medicine; Referring Provider Physical Medicine & Rehabilitation; Visit Provider Physical Medicine & Rehabilitation
DX: S22.069A Unspecified fracture of T7-T8 vertebra, initial encounter for closed fracture (principal); S22.49XA Multiple fractures of ribs, unspecified side, initial encounter for closed fracture
CPT/HCPCS: 72146

== ENCOUNTER → 2023-12-08 08:23 | Outpatient (CLI) | payer MEDICARE, OTHER, SELFPAY ==
--- NOTE | 2023-12-08 08:25 | DI.RAD.S_ITS ---
PROCEDURE: XR THORACIC SPINE 3V INDICATIONS: T8 fracture TECHNIQUE: 3 views of the thoracic spine were acquired. COMPARISON: [facility], MR, MR THORACIC SPINE WO CON, 09/05/2023, 10:44. [facility], CR, XR THORACIC SPINE 3V, 08/30/2023, 8:10. FINDINGS: Bones: Severe T8 compression fracture is unchanged. Kyphosis. No dislocations. No suspicious bony lesions. Small vertebral body osteophytes. 12 pairs of ribs are noted, and appear intact where visualized. Soft tissues: No paravertebral stripe thickening. Torturous descending aorta. Splenic artery atherosclerotic calcifications. Aortic arch atherosclerotic calcifications. IMPRESSION: Severe T8 compression fracture is unchanged. Dictated by: Riley David M.D. on 12/08/2023 at 11:30 Approved by: Riley David M.D. on 12/08/2023 at 11:36
== END ==
PROVIDERS: PCP Family Medicine; Referring Provider Physical Medicine & Rehabilitation; Visit Provider Physical Medicine & Rehabilitation
DX: S22.069A Unspecified fracture of T7-T8 vertebra, initial encounter for closed fracture (principal); X58.XXXA Exposure to other specified factors, initial encounter
CPT/HCPCS: 72072

== ENCOUNTER → 2024-07-25 08:26 | Outpatient (CLI) | payer MEDICARE, OTHER, SELFPAY ==
[2024-07-25 09:54] LABS: BUN Creatinine Ratio 15.6 (6-22); Blood Urea Nitrogen 29 mg/dL (7-17); Calcium 10.2 mg/dL (8.4-10.2); Carbon Dioxide 20 mmol/L (22-32); Chloride 110 mmol/L (98-107); Estimated Glomerular Filt Rate 26 mL/min (>60); Glucose 144 mg/dL (80-110); HEMOLYSIS < 15 (0-50); Potassium 4.6 mmol/L (3.4-5.1); Sodium 139 mmol/L (137-145)
== END ==
LOC: LAB 08:27
PROVIDERS: PCP Family Medicine; Referring Provider Family Medicine; Visit Provider Family Medicine
DX: I12.9 Hypertensive chronic kidney disease with stage 1 through stage 4 chronic kidney disease, or unspecified chronic kidney disease (principal); N18.30 Chronic kidney disease, stage 3 unspecified
CPT/HCPCS: 36415; 80048

== ENCOUNTER → 2024-12-27 08:27 | Outpatient (CLI) | payer MEDICARE, OTHER, SELFPAY ==
[2024-12-27 09:50] LABS: BUN Creatinine Ratio 16.8 (6-22); Blood Urea Nitrogen 32 mg/dL (7-17); Calcium 10.3 mg/dL (8.4-10.2); Carbon Dioxide 19 mmol/L (22-32); Chloride 109 mmol/L (98-107); Estimated Glomerular Filt Rate 25 mL/min (>60); Glucose 148 mg/dL (70-99); HEMOLYSIS < 15 (0-50); Potassium 4.5 mmol/L (3.4-5.1); Sodium 140 mmol/L (137-145)
== END ==
PROVIDERS: PCP Family Medicine; Referring Provider Family Medicine; Visit Provider Family Medicine
DX: R73.01 Impaired fasting glucose (principal); I48.91 Unspecified atrial fibrillation; N18.30 Chronic kidney disease, stage 3 unspecified; I12.9 Hypertensive chronic kidney disease with stage 1 through stage 4 chronic kidney disease, or unspecified chronic kidney disease
CPT/HCPCS: 36415; 80048; 83036